=== PATIENT | female | born 1980 | race Caucasian/White ===

== ENCOUNTER 2016-12-29 13:57 | Emergency (ER) | payer BC ==
--- NOTE | 2016-12-29 14:21 | ED PDOC ---
HPI: Headache Time Seen by Provider: 12/29/16 14:05 Chief Complaint (Nursing): Headache Chief Complaint (Provider): Headache History Per: Patient History/Exam Limitations: no limitations Current Symptoms Are (Timing): Still Present Quality: Pressure Associated Symptoms: Nausea. denies: Blurred Vision, Vomiting Additional Complaint(s): Abby Collins is a 36 year old female who presents to the emergency department complaining of intermittent headache that started about 1 month ago. Patient was seen 1 month ago by PMD who gave her rx for naprosyn and nasal spray for headache relief. At first the naprosyn and nasal spray were helping with headache pain and headache did resolve, but as of 5 days ago patient started having headache again and she states naprosyn is now not helping the pain. She has associated nausea with no vomiting and no vision changes. Patient states since headache symptoms started about 1 month ago, she has not had any imaging studies. She rates current headache as 7/10 and states this is not the worst headache of her life. PMD: Azul Merida Past Medical History Reviewed: Historical Data, Nursing Documentation, Vital Signs Vital Signs: Last Vital Signs Temp 97.8 F 12/29/16 13:59 Pulse 81 12/29/16 13:59 Resp 16 12/29/16 13:59 BP 147/80 12/29/16 13:59 Pulse Ox 99 12/29/16 13:59 - Medical History PMH: No Chronic Diseases - Surgical History Surgical History: Cholecystectomy - Family History Family History: States: No Known Family Hx - Living Arrangements Living Arrangements: With Family - Social History Current smoker - smoking cessation education provided: No Alcohol: Occasional Drugs: Denies - Home Medications Home Medications: Ambulatory Orders Medication Instructions Recorded Ibuprofen [Motrin] 600 mg PO Q6 PRN #15 tab 12/29/16 Metoclopramide [Reglan] 10 mg PO Q6 PRN #20 tab 12/29/16 - Allergies Allergies/Adverse Reactions: Allergies Allergy/AdvReac Type Severity Reaction Status Date / Time No Known Allergies Allergy Verified 05/12/15 21:21 Review of Systems ROS Statement: Except As Marked, All Systems Reviewed And Found Negative Constitutional: Negative for: Fever, Chills, Weakness Cardiovascular: Negative for: Chest Pain Respiratory: Negative for: Cough Gastrointestinal: Positive for: Nausea. Negative for: Vomiting Neurological: Positive for: Headache. Negative for: Change in Speech, Confusion , Seizures, Altered Mental Status, Dizziness Physical Exam - Reviewed Nursing Documentation Reviewed: Yes Vital Signs Reviewed: Yes - Physical Exam Appears: Positive for: Well, Non-toxic, No Acute Distress Head Exam: Positive for: ATRAUMATIC, NORMAL INSPECTION, NORMOCEPHALIC Skin: Positive for: Normal Color, Warm, Dry. Negative for: Rash Eye Exam: Positive for: Normal appearance ENT: Positive for: Normal ENT Inspection Neck: Positive for: Normal, Painless ROM Cardiovascular/Chest: Positive for: Regular Rate, Rhythm Respiratory: Positive for: Normal Breath Sounds. Negative for: Respiratory Distress Extremity: Positive for: Normal ROM. Negative for: Pedal Edema Neurologic/Psych: Positive for: Alert, Oriented - Laboratory Results Urine POC: Negative - ECG O2 Sat by Pulse Oximetry: 99 (RA) Pulse Ox Interpretation: Normal - Other Rad CT head X-Ray: Read By Radiologist X-Ray Interpretation: see below Medical Decision Making Medical Decision Making: Initial Impression: 36 y/o female with headache. Order entered as per [facility] migraine protocol. Initial Plan: --Head w/o contrast [CT] --Urine --Tylenol 375 mg PO --Toradol 30 mg IVP --Reglan 10 mg IVP --NS IV 1,000ml at 1,000mls/hr Head CT 1533 FINDINGS: HEMORRHAGE: No acute parenchymal, subarachnoid or extra-axial hemorrhage. BRAIN: No evidence of large acute infarct. No obvious parenchymal nor extra-axial mass or collection seen on this noncontrast study.There is mild prominence of the ventricles suggesting central volume loss. VENTRICLES: No evidence of obstructive hydrocephalus. CALVARIUM: Unremarkable. PARANASAL SINUSES: Unremarkable as visualized. No significant inflammatory changes. MASTOID AIR CELLS: Unremarkable as visualized. No inflammatory changes. OTHER FINDINGS: None. IMPRESSION: No acute intracranial hemorrhage. Prominent ventricles suggesting mild central volume loss. Patient feels better after meds given. Headache now 2/10, nausea resolved. Patient aware that CT head is normal. Rx reglan and motrin given. Patient was advised to follow up with PMD or neurologist for further evaluation. Scribe Attestation: Documented by Dennys Hinkle, acting as a scribe for Consuelo KRISHNAN. Provider Scribe Attestation: All medical record entries made by the Scribe were at my direction and personally dictated by me. I have reviewed the chart and agree that the record accurately reflects my personal performance of the history, physical exam, medical decision making, and the department course for this patient. I have also personally directed, reviewed, and agree with the discharge instructions and disposition. Disposition - Clinical Impression Clinical Impression: Migraine headache - Patient ED Disposition Is Patient to be Admitted: No Counseled Patient/Family Regarding: Studies Performed, Diagnosis, Need For Followup, Rx Given - Disposition Referrals: Thiago Horvath MD [Staff Provider] - Azul Merida MD [Family Provider] - Disposition: Routine/Home Disposition Time: 16:47 Condition: IMPROVED Additional Instructions: Take rx meds as directed as needed for headache. Drink plenty of water daily. Follow up with primary care doctor or with neurologist for any persistent symptoms. Prescriptions: Ibuprofen [Motrin] 600 mg PO Q6 PRN #15 tab PRN Reason: Pain, Moderate (4-7) Metoclopramide [Reglan] 10 mg PO Q6 PRN #20 tab PRN Reason: Nausea/Vomiting Instructions: Migraine Headache (ED) Forms: [employer] (Palestinian)
[2016-12-29] MEDS: Sodium Chloride 0.9% 1,000 ML IV STA (14:48)
--- NOTE | 2016-12-29 15:35 | CT ---
PROCEDURE: CT HEAD WITHOUT CONTRAST. HISTORY: headache COMPARISON: None available. TECHNIQUE: Axial computed tomography images were obtained through the head/brain without intravenous contrast. Radiation dose: Total exam DLP = 875.55 mGy-cm. This CT exam was performed using one or more of the following dose reduction techniques: Automated exposure control, adjustment of the mA and/or kV according to patient size, and/or use of iterative reconstruction technique. FINDINGS: HEMORRHAGE: No acute parenchymal, subarachnoid or extra-axial hemorrhage. BRAIN: No evidence of large acute infarct. No obvious parenchymal nor extra-axial mass or collection seen on this noncontrast study. There is mild prominence of the ventricles suggesting central volume loss. VENTRICLES: No evidence of obstructive hydrocephalus. CALVARIUM: Unremarkable. PARANASAL SINUSES: Unremarkable as visualized. No significant inflammatory changes. MASTOID AIR CELLS: Unremarkable as visualized. No inflammatory changes. OTHER FINDINGS: None. IMPRESSION: No acute intracranial hemorrhage. . Prominent ventricles suggesting mild central volume loss.
[2016-12-29 16:28] VITALS: PULSE 69; RESP 18; TEMP 98.2
[2016-12-29 16:33] VITALS: BP 193/67
[2016-12-29 16:50] VITALS: O2SAT 99
== END 2016-12-29 16:52 | disposition home or self-care (01) ==
LOC: H.ER 13:57
DX: G43.909 Migraine, unspecified, not intractable, without status migrainosus (principal)
CPT/HCPCS: 70450; 81025; 96374; 96375; 99284; J1885; J2765; J7040

== ENCOUNTER 2018-03-21 17:04 | Emergency (ER) | payer BC ==
[2018-03-21 17:26] VITALS: TEMP 98.4; O2SAT 100
[2018-03-21] MEDS ORDERED: Sodium Chloride 0.9% 1,000 ML IV STA (17:44)
[2018-03-21] MEDS ORDERED: Iohexol 240 (50 ml) PO STA (17:44)
--- NOTE | 2018-03-21 17:47 | ED PDOC ---
HPI: Abdomen Time Seen by Provider: 03/21/18 17:46 Chief Complaint (Nursing): Abdominal Pain Chief Complaint (Provider): abd pain History Per: Patient (38 y/o female here with lower abd pain intermittent x 2 days. Notes vomiting that improves symptoms. Denies any fevers/chills. Has h/o cholecystectomy. ) Past Medical History Reviewed: Historical Data, Nursing Documentation, Vital Signs Vital Signs: Last Vital Signs Temp 98.4 F 03/21/18 17:20 Pulse 78 03/21/18 17:20 Resp 18 03/21/18 17:20 BP 113/73 03/21/18 17:20 Pulse Ox 100 03/21/18 17:20 - Medical History PMH: Gall Bladder Disease - Surgical History Surgical History: Cholecystectomy - Family History Family History: States: Unknown Family Hx - Home Medications Home Medications: Ambulatory Orders Medication Instructions Recorded Ibuprofen [Motrin] 600 mg PO Q6 PRN #15 tab 12/29/16 Metoclopramide [Reglan] 10 mg PO Q6 PRN #20 tab 12/29/16 - Allergies Allergies/Adverse Reactions: Allergies Allergy/AdvReac Type Severity Reaction Status Date / Time No Known Allergies Allergy Verified 05/12/15 21:21 Review of Systems ROS Statement: Except As Marked, All Systems Reviewed And Found Negative Gastrointestinal: Positive for: Nausea, Abdominal Pain Physical Exam - Reviewed Nursing Documentation Reviewed: Yes Vital Signs Reviewed: Yes - Physical Exam Appears: Positive for: Well, Non-toxic, No Acute Distress Head Exam: Positive for: ATRAUMATIC, NORMAL INSPECTION, NORMOCEPHALIC Skin: Positive for: Normal Color, Warm, DRY Eye Exam: Positive for: EOMI, Normal appearance, PERRL ENT: Positive for: Normal ENT Inspection Neck: Positive for: Normal, Painless ROM Cardiovascular/Chest: Positive for: Regular Rate, Rhythm Respiratory: Positive for: CNT, Normal Breath Sounds Gastrointestinal/Abdominal: Positive for: Normal Exam, Soft, Tenderness (suprapubic tenderness) Pelvic Exam: Positive for: Discharge (minimal vaginal discharge), Tender Adnexa (MILD TENDERNESS BILATERAL ADNEXA L>R). Negative for: Tender W/Cervical Motion Back: Positive for: Normal Inspection Extremity: Positive for: Normal ROM Neurologic/Psych: Positive for: Alert, Oriented - Laboratory Results Result Diagrams: 03/21/18 18:16 03/21/18 18:16 Urine POC: Negative Urine dip results: Positive for: Leukocyte Esterase (trace). Negative for: Blood, Nitrate, Ketones, Glucose, Bilirubin, Protein - ECG O2 Sat by Pulse Oximetry: 100 - Progress ED Course And Treament: pepcid 20 mg iv x 1 dose zofran 4 mg iv x 1 dose bentyl 20 mg x 1 dose ns 1 liter 500 ml per hour Disposition - Clinical Impression Clinical Impression: Abdominal pain in female - Patient ED Disposition Is Patient to be Admitted: Transfer of Care - Disposition Disposition: Transfer of Care Disposition Time: 19:56 Condition: FAIR Instructions: Acute Abdomen (Belly Pain) Patient Signed Over To: Yeni Posadas Handoff Comments: PELVIC US/ CT ABD/PELVIS/BLOODWORK/RE-EVAL.
[2018-03-21] MEDS ORDERED: Iohexol 240 (50 ml) ONE (17:52)
[2018-03-21 18:27] LABS: BASO % 0.6 % (0.0-2.0); EOS % 0.8 % (0.0-4.0); HEMOGLOBIN 13.2 g/dL (12.0-16.0); LYMPH # 1.4 K/uL (1.0-4.3); LYMPH % 28.8 % (20.0-40.0); MEAN CELL VOLUME 89.5 fl (81.0-99.0); MEAN CORPUSCULAR HGB CONC 33.5 g/dL (33.0-37.0); MONO # 0.4 K/uL (0.0-0.8); MONO % 8.6 % (0.0-10.0); NEUT % 61.2 % (50.0-75.0); NRBC % 0.3 % (0.0-0.0); RBC 4.41 Mil/uL (3.80-5.20); RED CELL DISTRIBUTION WIDTH 12.5 % (11.5-14.5); URINE BILIRUBIN NEGATIVE (NEGATIVE); URINE BLOOD NEGATIVE (NEGATIVE); URINE CLARITY SLIGHTY-CLOUDY (Clear); URINE COLOR YELLOW (YELLOW); URINE GLUCOSE (UA) NEG (Normal); URINE LEUKOCYTE ESTERASE NEG Leu/uL (Negative); URINE PROTEIN NEGATIVE (NEGATIVE); URINE UROBILINOGEN 0.2-1.0 mg/dL (0.2-1.0); WHITE BLOOD COUNT 4.9 K/uL (4.8-10.8)
[2018-03-21 18:34] LABS: ALB/GLOB RATIO 1.2 (1.0-2.1); ALBUMIN 4.3 g/dL (3.5-5.0); ALT/SGPT 68 U/L (9-52); AST/SGOT 77 U/L (14-36); BLOOD UREA NITROGEN 13 mg/dl (7-17); CALCIUM 9.3 mg/dL (8.4-10.2); GFR NON-AFRICAN AMERICAN > 60; LIPASE 103 U/L (23-300)
[2018-03-21] MEDS ORDERED: Sodium Chloride 0.9% 50 ML IV ONE (19:59)
[2018-03-21] MEDS ORDERED: Iohexol 300 100 ML IJ ONE (19:59)
--- NOTE | 2018-03-21 21:58 | ED PDOC ---
- Laboratory Results Result Diagrams: 03/21/18 18:16 03/21/18 18:16 Urine POC: Negative - ECG O2 Sat by Pulse Oximetry: 100 Pulse Ox Interpretation: Normal - Progress ED Course And Treament: Endorsed to publications writer pending CT and re-evaluation. (+) left ovarian cyst. (+) enteritis Disposition - Clinical Impression Clinical Impression: Enteritis - POA Present On Arrival: None - Disposition Disposition: Routine/Home Disposition Time: 21:57 Condition: GOOD Prescriptions: Ondansetron [Zofran Odt] 4 mg PO Q4H PRN #10 odt PRN Reason: Nausea Instructions: Viral Gastroenteritis, Adult (DC)
[2018-03-21 22:20] VITALS: BP 110/74; PULSE 72; RESP 16
--- NOTE | 2018-03-22 11:47 | US ---
Date of service: 03/21/2018 HISTORY: Lower abdominal pain. LMP 03/11/2018 with regular cycles. COMPARISON: None available. TECHNIQUE: Transvaginal only. Real -time technique with 2D, duplex and color Doppler FINDINGS: UTERUS: Measures 2.8 x 4.2 x 6.8 cm. Normal in size and appearance. No fibroid or other mass lesion seen. ENDOMETRIUM: Measures 4.8 mm in diameter. CERVIX: No cervical abnormality identified. RIGHT OVARY: Not visible LEFT OVARY: Measures 2 x 2.7 x 2.0 cm. No solid mass. Normal flow. Dominant cyst, thick walled 1.5 x 2.2 cm. Additional smaller cysts less than 1 cm identified. FREE FLUID: No significant free fluid noted. OTHER FINDINGS: None. IMPRESSION: Unremarkable uterus and endometrial echo complex. Cysts/follicles identified left adnexa. Limitations of the current examination: Nonvisualization right adnexa obscured by overlying bowel gas.
--- NOTE | 2018-03-22 12:12 | CT ---
Date of service: 03/21/2018 PROCEDURE: CT Abdomen and Pelvis with contrast HISTORY: lower abd pain COMPARISON: None. TECHNIQUE: Intravenous contrast dose: 90.1 Radiation dose: Total exam DLP = 284.05 mGy-cm. This CT exam was performed using one or more of the following dose reduction techniques: Automated exposure control, adjustment of the mA and/or kV according to patient size, and/or use of iterative reconstruction technique. FINDINGS: LOWER THORAX: Unremarkable. LIVER: Unremarkable. No gross lesion or ductal dilatation. Incidental finding(s): Multiple simple hepatic cysts the preponderance of which are 1 cm or smaller. GALLBLADDER AND BILE DUCTS: Status post cholecystectomy. No abnormality is seen in the gallbladder fossa. PANCREAS: Unremarkable. No gross lesion or ductal dilatation. SPLEEN: Unremarkable. ADRENALS: Unremarkable. No mass. KIDNEYS AND URETERS: Unremarkable. No hydronephrosis. No solid mass. VASCULATURE: Unremarkable. No aortic aneurysm. No atherosclerotic calcification or mural plaque present. BOWEL: Inflammatory changes primarily affecting the sigmoid colon and to lesser extent the descending colon consistent with mild colitis. Thickening of loops of jejunum consistent with enteritis. Constipation without fecal impaction or obstruction. APPENDIX: A normal appendix is visualized in it's entirety. PERITONEUM: Unremarkable. No free fluid. No free air. LYMPH NODES: Unremarkable. No enlarged lymph nodes. BLADDER: Unremarkable. REPRODUCTIVE: Heterogeneous appearing uterus. Dominant cyst/follicle left adnexa 2.1 x 2.7 cm. BONES: No acute fracture. OTHER FINDINGS: None. IMPRESSION: Findings consistent with mild enteritis. Mild inflammatory changes primarily affecting sigmoid colon. Additional benign and/or incidental findings described above. Concordant results (preliminary interpretation) provided by [employer]. Procedure Completed: 20:07. Preliminary Report: Dictated and Authenticated: 21:16. Final Interpretation: 12:09. March 22, 2018
== END 2018-03-21 22:20 | disposition home or self-care (01) ==
LOC: H.ER 17:04
DX: K52.9 Noninfective gastroenteritis and colitis, unspecified (principal); N83.291 Other ovarian cyst, right side
CPT/HCPCS: 74177; 76830; 80053; 81003; 81025; 83690; 85025; 87086; 87491; 87591; 96361; 96374; 96375; 99284; J2405; J7030; Q9966; Q9967

== ENCOUNTER 2018-03-22 16:57 | Emergency (ER) | payer BC ==
[2018-03-22 17:10] VITALS: O2SAT 100
[2018-03-22] MEDS ORDERED: Promethazine 25 MG in Sodium Chloride 0.9% 50 ML IVPB STA ×2 (18:01→18:48)
[2018-03-22] MEDS ORDERED: DiphenhydrAMINE 50 mg/ml Inj IVP STA (18:01)
[2018-03-22] MEDS ORDERED: Sodium Chloride 0.9% 1,000 ML IV STA ×2 (18:02→21:21)
[2018-03-22] MEDS ORDERED: DiphenhydrAMINE 12.5 mg/5 ml LIQ UD (5 ml) ONE (18:10)
[2018-03-22] MEDS ORDERED: DiphenhydrAMINE 50 mg/ml Inj ONE (18:23)
--- NOTE | 2018-03-22 18:41 | ED PDOC ---
HPI: Headache Time Seen by Provider: 03/22/18 17:32 Chief Complaint (Nursing): Headache Chief Complaint (Provider): Headache History Per: Patient History/Exam Limitations: no limitations Onset/Duration Of Symptoms: Days Current Symptoms Are (Timing): Still Present Preceeding Symptoms: Known Migraine Symptoms Associated Symptoms: Nausea, Vomiting. denies: Photophobia, Blurred Vision, Extremity Weakness Additional History Per: Patient Additional Complaint(s): 38yo female, with history of migraines, comes to ER reporting a migraine headache since yesterday. Patient states she was seen in this ER yesterday due to abdominal pain, had a CT w/ contrast and states she "read that contrast can cause headache." Patient reports an episode of vomiting at home; she denies any fever, vision changes, photophobia or weakness. No additional complaints. PMD: [place] Past Medical History Reviewed: Historical Data, Nursing Documentation, Vital Signs Vital Signs: Last Vital Signs Temp 97.3 F L 03/22/18 17:02 Pulse 76 03/22/18 17:02 Resp 18 03/22/18 17:06 BP 97/63 L 03/22/18 17:02 Pulse Ox 100 03/22/18 17:06 - Medical History PMH: Gall Bladder Disease, Migraine - Surgical History Surgical History: Cholecystectomy - Family History Family History: States: No Known Family Hx - Home Medications Home Medications: Ambulatory Orders Medication Instructions Recorded Ibuprofen [Motrin] 600 mg PO Q6 PRN #15 tab 12/29/16 Metoclopramide [Reglan] 10 mg PO Q6 PRN #20 tab 12/29/16 Ondansetron [Zofran Odt] 4 mg PO Q4H PRN #10 odt 03/21/18 - Allergies Allergies/Adverse Reactions: Allergies Allergy/AdvReac Type Severity Reaction Status Date / Time No Known Allergies Allergy Verified 05/12/15 21:21 Review of Systems ROS Statement: Except As Marked, All Systems Reviewed And Found Negative (per HPI) Eyes: Negative for: Vision Change, Other (photophobia) Gastrointestinal: Positive for: Vomiting (x 1) Neurological: Positive for: Headache. Negative for: Weakness, Numbness Physical Exam - Reviewed Nursing Documentation Reviewed: Yes Vital Signs Reviewed: Yes - Physical Exam Appears: Positive for: Well, Non-toxic, No Acute Distress Head Exam: Positive for: ATRAUMATIC, NORMAL INSPECTION, NORMOCEPHALIC Skin: Positive for: Normal Color, Warm, DRY Eye Exam: Positive for: EOMI, Normal appearance, PERRL Neck: Positive for: Normal, Painless ROM, Supple Cardiovascular/Chest: Positive for: Regular Rate, Rhythm Respiratory: Positive for: CNT, Normal Breath Sounds Extremity: Positive for: Normal ROM Neurologic/Psych: Positive for: Alert, atomic spectroscopist II-XII, Oriented. Negative for: Motor/Sensory Deficits - ECG O2 Sat by Pulse Oximetry: 100 (RA) Pulse Ox Interpretation: Normal Medical Decision Making Medical Decision Making: Impression: Headache Plan: * Benadryl 25mg IV * IV Fluids * Phenergan 25mg IV 1900 Patient to be signed out to Dr. Paula pending reassessment, final disposition. Scribe Attestation: Documented by Elva Rutledge, acting as a scribe for Belen Jones MD. Provider Scribe Attestation: All medical record entries made by the Scribe were at my direction and personally dictated by me. I have reviewed the chart and agree that the record accurately reflects my personal performance of the history, physical exam, medical decision making, and the department course for this patient. I have also personally directed, reviewed, and agree with the discharge instructions and disposition. Disposition - Clinical Impression Clinical Impression: Headache - Patient ED Disposition Is Patient to be Admitted: Transfer of Care - Disposition Disposition: Transfer of Care Disposition Time: 19:00 Condition: STABLE Additional Instructions: Follow up with primary medical doctor for [facility] treatment of headaches and anxiety. Return to the emergency department if symptoms worsen or if new symptoms develop. Instructions: Tension Headache (DC) Forms: [employer] (Ukrainian), [facility] ED School/Work Excuse Print Language: ISRAELI
[2018-03-22 18:56] VITALS: TEMP 97.7
--- NOTE | 2018-03-22 19:15 | ED PDOC ---
- ECG O2 Sat by Pulse Oximetry: 100 (RA) Pulse Ox Interpretation: Normal Medical Decision Making Medical Decision Makin Patient signed out to me by Dr. Jones pending reassessment, final disposition. 2199 On reassessment, patient states her symptoms have resolved. Patient states she feels tingly and feels like previous episode of anxiety. Patient states after reading about possibility of migraine w/ contrast material, patient felt as if she was having an allergic reaction. Discussed with patient extensively that as she does not have any skin rash, swelling, the likelihood of having an allergic reaction is very low. Patient currently declines any anxiolytic medication. EKG ordered as patient is concerned about a RI; patient's EKG is normal. Patient given 2nd liter of IVF and currently, patient noted to be sleeping. On awakening, patient is comfortable and is agreeable with plan for discharge home and will follow up with PMD. Patient also requesting a work note. Scribe Attestation: Documented by Elva Rutledge, acting as a scribe for Yanely Paula MD. Provider Scribe Attestation: All medical record entries made by the Scribe were at my direction and personally dictated by me. I have reviewed the chart and agree that the record accurately reflects my personal performance of the history, physical exam, medical decision making, and the department course for this patient. I have also personally directed, reviewed, and agree with the discharge instructions and disposition. 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 Return to the emergency department if symptoms worsen or if new symptoms develop. Instructions: Tension Headache (DC) Forms: [employer] (Uzbek), [facility] ED School/Work Excuse Print Language: GREEK
[2018-03-22 22:15] VITALS: BP 117/73; PULSE 89; RESP 20
--- NOTE | 2018-03-23 15:14 | CARD ---
APPROVED REPORT Date of service: 03/22/2018 EKG Measurement Heart [id number] <Conclusion> Normal sinus rhythm Rightward axis Borderline ECG
== END 2018-03-22 22:18 | disposition home or self-care (01) ==
LOC: H.ER 16:57
DX: R51 Headache (principal)
CPT/HCPCS: 81025; 93005; 96361; 96365; 96375; 99285; J1200; J1885; J2550; J7030